=== PATIENT | male | born 1975 | race Caucasian/White ===

== ENCOUNTER 2022-02-25 16:03 | Emergency (ER) | payer BC, OTHER ==
[2022-02-25] MEDS ORDERED: Sodium Chloride 0.9% 10 ML Syringe FLUSH PRN (17:54)
[2022-02-25] MEDS ORDERED: Ondansetron 4 MG/2 ML SDV IVPUSH ONE (17:55)
[2022-02-25] MEDS ORDERED: Ketorolac 30 MG/ML SDV IVPUSH ONE (17:56)
[2022-02-25] MEDS ORDERED: Sodium Chloride 0.9% 1,000 ML IV ONE (17:56)
[2022-02-25] MEDS ORDERED: Morphine 2 MG/ML SYRINGE IVPUSH ONE (18:38)
[2022-02-25] MEDS ORDERED: Tamsulosin 0.4 MG Cap.ER PO ONE (18:40)
[2022-02-25 18:41] LABS: ESTIMATED GFR 59 (>60)
== END 2022-02-25 19:34 | disposition home or self-care (01) ==
LOC: JP.ED 16:03
DX: N13.2 Hydronephrosis with renal and ureteral calculous obstruction (principal); Z87.891 Personal history of nicotine dependence; Z79.899 Other long term (current) drug therapy
CPT/HCPCS: 36415; 74176; 80053; 81001; 85025; 86140; 96374; 96375; 99284; A9270; J1885; J2405; J7030; 99283